=== PATIENT | male | born 1995 | race Caucasian/White ===

== ENCOUNTER 2017-10-11 10:11 | Emergency (ER) | payer OTHER, MEDICAID ==
[2017-10-11 10:22] VITALS: BP 137/79
--- NOTE | 2017-10-11 10:31 | ED Physician Documentation ---
PD HPI UPPER EXT INJURY - Stated complaint Stated Complaint: LEFT HAND LAC - Chief complaint Chief Complaint: Laceration - History obtained from History obtained from: Patient - History of Present Illness Location: Left, Hand Type of injury: Laceration (drill press) Where injury occurred: Work Timing - onset: Today Timing - duration: Hours (1) Timing - details: Abrupt onset Pain level max: 5 Improved by: Rest Worsened by: Moving, Palpating Associated symptoms: No: Weakness, Numbness, Tingling, Swelling Contributing factors: No: Anticoagulated Recently seen: Not recently seen - Additonal information Additional information: pt is right handed. Td UTD Review of Systems Neurologic: denies: Focal weakness, Numbness PD PAST MEDICAL HISTORY - Past Medical History Past Medical History: No - Past Surgical History Past Surgical History: No - Social History Does the pt smoke?: No Smoking Status: Never smoker Does the pt drink ETOH?: Yes Does the pt have substance abuse?: No - Immunizations Immunizations are current?: Yes Immunizations: TDAP current <10years PD ED PE NORMAL - Vitals Vital signs reviewed: Yes - General General: Alert and oriented X 3, No acute distress - Derm Derm: Warm and dry - Extremities Extremities: Other (L hand - Multiple abrasions to the webspace of the left hand. No lacerations that are suturable. No bony injury. Full range of motion without pain. Neurovascularly intact.) - Neuro Neuro: Alert and oriented X 3 - Psych Psych: Normal mood, Normal affect Results - Vitals Vitals: Vital Signs - 24 hr 10/11/17 10:21 Temperature 36.2 C L Heart Rate 66 Respiratory 16 Rate Blood Pressure 137/79 H O2 Saturation 99 Oxygen O2 Source Room air PD MEDICAL DECISION MAKING - ED course Complexity details: considered differential, d/w patient ED course: Patient with multiple abrasions to the webspace of the left hand from a drill bit on the drill press. Nothing that requires suturing. Wound was cleansed and bandaged. Tolerated well. Warnings of infection and instructions on wound care given at bedside. Also counseled on how to minimize scarring. Tetanus is up-to-date. Patient counseled regarding signs and symptoms for which I believe and urgent re-evaluation would be necessary. Patient with good understanding of and agreement to plan and is comfortable going home at this time This document was made in part using voice recognition software. While efforts are made to proofread this document, sound alike and grammatical errors may occur. Departure - Departure Disposition: 01 Home, Self Care Clinical Impression: Abrasion of left hand Qualifiers: Encounter type: initial encounter Qualified Code(s): S60.512A - Abrasion of left hand, initial encounter Condition: Good Instructions: ED Laceration Hand Follow-Up: your,doctor as needed [Other] Comments: Return if you worsen, especially redness, swelling or drainage from the wound. Keep the wound clean.
[2017-10-11] MEDS ORDERED: BACITRACIN OINT TOP STA (10:36)
== END 2017-10-11 11:00 | disposition home or self-care (01) ==
LOC: ED 10:11
DX: S60.512A Abrasion of left hand, initial encounter (principal); W31.1XXA Contact with metalworking machines, initial encounter; Y93.89 Activity, other specified; Y92.69 Other specified industrial and construction area as the place of occurrence of the external cause; Y99.0 Civilian activity done for income or pay
CPT/HCPCS: 99282; 99283; A9270; 1040M